=== PATIENT | female | born 1985 | race Caucasian/White ===

== ENCOUNTER 2019-11-29 23:14 | Inpatient (IN) | payer OTHER ==
[~2019-11-29] VITALS: Ht 177.8 cm; Wt 90.5 kg
[2019-11-29 23:35] VITALS: BP 120/62
[2019-11-29] MEDS ORDERED: MAGNESIUM SULF. PMX 20GM/500ML 500 ML IV SCH (23:35)
[2019-11-29] MEDS ORDERED: PLEASE ENTER ALLERGIES MC SCH (23:45)
[2019-11-29] MEDS ORDERED: PLEASE ENTER HEIGHT AND WEIGHT MC SCH (23:45)
[2019-11-30 00:01] VITALS: BP 120/62
[2019-11-30] MEDS ORDERED: METOCLOPRAMIDE 5 MG/ML, 2ML ONE ×4 (00:08→18:27)
[2019-11-30 00:22] LABS: BASOPHILS # (AUTO) 0.04 x10^3/uL (0-0.1); BASOPHILS % (AUTO) 0 % (0-1); EOSINOPHILS % (AUTO) 1 % (1-7); LYMPHOCYTES % (AUTO) 17 % (22-44); MD NO; MEAN CORPUSCULAR HEMOGLOBIN 27.7 pg (27.0-34.8); MEAN CORPUSCULAR HGB CONC 32.5 g/dL (32.4-35.8); MEAN CORPUSCULAR VOLUME 85.1 fL (80-100); MEAN PLATELET VOLUME 9.3 fL (7.4-10.4); MONOCYTES # (AUTO) 0.64 x10^3/uL (0.2-0.8); MONOCYTES % (AUTO) 4 % (2-9); NEUTROPHILS # (AUTO) 11.83 x10^3/uL (1.8-6.8); NEUTROPHILS % (AUTO) 78 % (42-75); PLATELET COUNT 247 x10^3/uL (130-400); RED BLOOD COUNT 3.79 x10^6/uL (3.82-5.3); RED CELL DISTRIBUTION WIDTH 13.7 % (9.6-15.2)
[2019-11-30 00:25] LABS: ALANINE AMINOTRANSFERASE 20 U/L (12-78); ALBUMIN 2.7 g/dL (3.4-5.0); ANION GAP 9 mmol/L (5-15); CALCIUM 7.1 mg/dL (8.5-10.1); CHLORIDE 110 mmol/L (98-107); CREATININE 0.61 mg/dL (0.55-1.02)
[2019-11-30 00:27] LABS: ALKALINE PHOSPHATASE 84 U/L (45-117); BILIRUBIN,TOTAL 0.2 mg/dL (0.2-1.0); TOTAL PROTEIN 6.5 g/dL (6.4-8.2)
[2019-11-30] MEDS ORDERED: D5%-LACTATED RINGERS 500ML IVBOLUS ONE (00:30)
[2019-11-30] MEDS: PENICILLIN GK 2,500,000 UNITS in DEXTROSE 5% 100 ML IV SCH ×6 (00:30→21:25)
[2019-11-30] MEDS ORDERED: METOCLOPRAMIDE 5 MG/ML, 2ML IVPush ONE (00:30)
[2019-11-30] MEDS ORDERED: ACETAMINOPHEN 325 MG TABLET ONE ×4 (00:51→19:35)
[2019-11-30] MEDS: ACETAMINOPHEN 325 MG TABLET PO PRN ×4 (00:55→19:37)
[2019-11-30] MEDS ORDERED: MAGNESIUM SULF. PMX 20GM/500ML 500 ML IV ONE ×2 (04:24→15:00)
[2019-11-30] MEDS: METOCLOPRAMIDE 5 MG/ML, 2ML IVPush SCH ×3 (06:40→18:31)
[2019-11-30 08:00] VITALS: BP 112/59
[2019-11-30] MEDS ORDERED: PRENATAL VIT/IRON/FA 1 EACH TABLET ONE (09:53)
[2019-11-30] MEDS ORDERED: DOCUSATE 100 MG CAPSULE ONE ×2 (09:53→21:04)
[2019-11-30] MEDS: DOCUSATE 100 MG CAPSULE PO SCH ×2 (10:48→21:28)
[2019-11-30] MEDS: PRENATAL VIT/IRON/FA 1 EACH TABLET PO SCH (10:48)
[2019-11-30] MEDS ORDERED: FAMOTIDINE 20 MG TABLET ONE ×2 (10:49→21:04)
[2019-11-30] MEDS: FAMOTIDINE 20 MG TABLET PO SCH ×2 (10:52→21:28)
[2019-11-30 12:00] VITALS: BP 110/66
[2019-11-30 17:17] VITALS: BP 108/55
[2019-11-30] MEDS ORDERED: MAGNESIUM SULF. PMX 20GM/500ML 500 ML IV SCH (23:35)
[2019-12-01] MEDS ORDERED: METOCLOPRAMIDE 5 MG/ML, 2ML ONE (00:10)
[2019-12-01] MEDS: METOCLOPRAMIDE 5 MG/ML, 2ML IVPush SCH ×4 (00:30→18:30)
[2019-12-01] MEDS: PENICILLIN GK 2,500,000 UNITS in DEXTROSE 5% 100 ML IV SCH ×3 (01:01→08:30)
[2019-12-01] MEDS ORDERED: ACETAMINOPHEN 325 MG TABLET ONE (01:03)
[2019-12-01] MEDS: ACETAMINOPHEN 325 MG TABLET PO PRN (01:04)
[2019-12-01] MEDS ORDERED: MAGNESIUM SULF. PMX 20GM/500ML 500 ML IV ONE (04:00)
[2019-12-01] MEDS ORDERED: DOCUSATE 100 MG CAPSULE ONE (08:28)
[2019-12-01] MEDS ORDERED: PRENATAL VIT/IRON/FA 1 EACH TABLET ONE (08:28)
[2019-12-01] MEDS ORDERED: FAMOTIDINE 20 MG TABLET ONE ×2 (08:28→20:45)
[2019-12-01 08:30] VITALS: BP 125/69
[2019-12-01] MEDS: DOCUSATE 100 MG CAPSULE PO SCH ×2 (08:30→20:50)
[2019-12-01] MEDS: PRENATAL VIT/IRON/FA 1 EACH TABLET PO SCH (08:31)
[2019-12-01] MEDS: FAMOTIDINE 20 MG TABLET PO SCH ×2 (08:31→20:47)
[2019-12-01] MEDS ORDERED: MAGNESIUM SULF. PMX 20GM/500ML 500 ML IV SCH (23:35)
[2019-12-02] MEDS: METOCLOPRAMIDE 5 MG/ML, 2ML IVPush SCH ×3 (00:30→12:30)
[2019-12-02] MEDS: DOCUSATE 100 MG CAPSULE PO SCH ×2 (09:00→21:00)
[2019-12-02 09:15] VITALS: BP 132/75
[2019-12-02] MEDS ORDERED: FAMOTIDINE 20 MG TABLET ONE ×2 (09:37→21:20)
[2019-12-02] MEDS ORDERED: PRENATAL VIT/IRON/FA 1 EACH TABLET ONE (09:37)
[2019-12-02] MEDS ORDERED: DOCUSATE 100 MG CAPSULE ONE (09:37)
[2019-12-02] MEDS: PRENATAL VIT/IRON/FA 1 EACH TABLET PO SCH (09:39)
[2019-12-02] MEDS: FAMOTIDINE 20 MG TABLET PO SCH ×2 (09:39→21:22)
[2019-12-02] MEDS ORDERED: ACETAMINOPHEN 325 MG TABLET ONE (13:13)
[2019-12-02] MEDS: ACETAMINOPHEN 325 MG TABLET PO PRN (13:13)
[2019-12-02 17:35] LABS: CREATININE,URINE RANDOM 58.5 mg/dL
[2019-12-02 17:39] LABS: ALANINE AMINOTRANSFERASE 17 U/L (12-78); ALBUMIN 2.6 g/dL (3.4-5.0); ANION GAP 10 mmol/L (5-15); CALCIUM 8.7 mg/dL (8.5-10.1); CHLORIDE 106 mmol/L (98-107)
[2019-12-02 17:42] LABS: ALKALINE PHOSPHATASE 95 U/L (45-117); BILIRUBIN,TOTAL 0.2 mg/dL (0.2-1.0); CREATININE 0.77 mg/dL (0.55-1.02); TOTAL PROTEIN 6.9 g/dL (6.4-8.2)
[2019-12-03] MEDS ORDERED: PRENATAL VIT/IRON/FA 1 EACH TABLET ONE (07:24)
[2019-12-03] MEDS ORDERED: DOCUSATE 100 MG CAPSULE ONE (07:24)
[2019-12-03] MEDS ORDERED: FAMOTIDINE 20 MG TABLET ONE (07:25)
[2019-12-03 08:12] VITALS: BP 141/81
[2019-12-03] MEDS: PRENATAL VIT/IRON/FA 1 EACH TABLET PO SCH (08:32)
[2019-12-03] MEDS: FAMOTIDINE 20 MG TABLET PO SCH (08:32)
[2019-12-03] MEDS: DOCUSATE 100 MG CAPSULE PO SCH (08:37)
[2019-12-03] MEDS ORDERED: PREN1TAB60 PO (09:28)
== END 2019-12-03 09:38 | disposition home or self-care (01) | DRG 831 ==
LOC: LDIP 23:14
PROVIDERS: ADMIT Obstetrics & Gynecology Maternal & Fetal Medicine; ATTEND Obstetrics & Gynecology Maternal & Fetal Medicine
DX: O13.3 Gestational [pregnancy-induced] hypertension without significant proteinuria, third trimester (principal); O60.03 Preterm labor without delivery, third trimester; J45.909 Unspecified asthma, uncomplicated; Z3A.33 33 weeks gestation of pregnancy; Z90.49 Acquired absence of other specified parts of digestive tract; Z88.6 Allergy status to analgesic agent; Z88.1 Allergy status to other antibiotic agents; Z88.8 Allergy status to other drugs, medicaments and biological substances
CPT/HCPCS: 36415; J7121; 80053; 82570; 83735; 84156; 84550; 85025; 86592; 86850; 86900; G0378; J2540; J2765; J3475; U0001-CS